=== PATIENT | female | born 1965 | race Native Hawaiian/Other Pacific Islander ===

== ENCOUNTER 2019-10-26 08:37 | Outpatient (CLI) | payer BC | END 2019-10-26 23:16 | disposition home or self-care (01) | LOC: US 08:37 | DX: M25.511 Pain in right shoulder (principal); S05.11XD Contusion of eyeball and orbital tissues, right eye, subsequent encounter; R22.1 Localized swelling, mass and lump, neck ==

== ENCOUNTER 2021-12-23 16:27 | Outpatient (CLI) | payer BC ==
[2021-12-23 17:24] LABS: POTASSIUM 3.8 mmol/L (3.6-5.2)
[2021-12-23 17:36] LABS: PLATELET COUNT 261 K/uL (152-353)
== END 2021-12-23 19:44 | disposition home or self-care (01) ==
LOC: RESP 16:27
PROVIDERS: ATTEND Nurse Practitioner Family
DX: R07.89 Other chest pain (principal)
CPT/HCPCS: 36415; 80053; 82550; 82553; 84484; 85027; 85379; 93005